=== PATIENT | male | born 1950 | race Caucasian/White ===

== ENCOUNTER 2017-05-09 11:26 | Outpatient (CLI) | payer BC ==
--- NOTE | 2017-05-09 12:10 | XRAY Preliminary Report ---
Exam: XR CHEST 2 VIEW X-RAY IMPRESSION: 1. No focal consolidation. 2. Subtle increased interstitial markings with bronchial cuffing are nonspecific but can be seen in t he setting of reactive airways disease, bronchitis or viral infection. ZAYA The call report notification system was initiated by Dr. Vianey Guidry at 12:05 hrs on 05/09/17. The above findings were discussed with Dr. Angelica Dr by Dr. Vianey Guidry at 12:08 hrs on 8. SITE ID: [id number]
--- NOTE | 2017-05-09 12:10 | XRAY Report ---
EXAM: CHEST RADIOGRAPHY EXAM DATE: 05/09/2017 11:50 AM. CLINICAL HISTORY: PNEUMONIA. COMPARISON: None. TECHNIQUE: 2 views. FINDINGS: Lungs/Pleura: Subtle increased interstitial markings with bronchial cuffing. No focal opacities evide nt. No pleural effusion. No pneumothorax. Normal volumes. Mediastinum: The heart is mildly enlarged. No pulmonary edema. Other: None. IMPRESSION: 1. No focal consolidation. 2. Subtle increased interstitial markings with bronchial cuffing are nonspecific but can be seen in t he setting of reactive airways disease, bronchitis or viral infection. RADIA The call report notification system was initiated by Dr. Vianey Guidry at 12:05 hrs on 05/09/17. The above findings were discussed with Dr. Angelica Dr by Dr. Vianey Guidry at 12:08 hrs on 8. Referring Provider Line: [phone] SITE ID: [id number]
== END 2017-05-09 11:27 | disposition home or self-care (01) ==
LOC: DI 11:26
PROVIDERS: ATTEND Specialist
DX: J18.9 Pneumonia, unspecified organism (principal)
CPT/HCPCS: 71046

== ENCOUNTER 2019-05-28 02:19 | Emergency (ER) | payer BC, MEDICARE ==
--- NOTE | 2019-05-28 02:35 | ED Physician Documentation ---
History of Present Illness - Stated complaint Stated Complaint: THIGH CRAMP - Additonal information Additional information: This is a 68-year-old male with a history of hypertension, intracranial hemorrhage with resultant hemiplegia, who presents with right-sided thigh pain/cramping. Patient states he has had cramping in his right anterior thigh on and off for a few years, but over the last several days has become more constant and more painful. Tonight it was keeping him up at night, so he presented to the ED for evaluation. He denies any leg swelling or redness, states that in fact his legs seem less swollen than usual to him. The pain is located over the anterior thigh and radiates To his flank. He denies any dysuria, no chest pain, no shortness of breath. He denies any new weakness or numbness. Positional changes seem to make it somewhat better, he prefers to stand up rather than sit down. He is on baclofen chronically, states that he increased his dose from 10 mg twice daily to 20 mg twice daily in the last day without significant improvement. He is also been taking Tylenol 650 mg every 4- 6 hours Review of Systems Constitutional: denies: Fever Nose: denies: Congestion Cardiac: denies: Chest pain / pressure Respiratory: denies: Dyspnea GI: denies: Abdominal Pain, Vomiting : denies: Dysuria Skin: denies: Rash Musculoskeletal: reports: Extremity pain Neurologic: reports: Other (Hx ICH) Immunocompromised: denies: Immunocompromised PD PAST MEDICAL HISTORY - Past Medical History Cardiovascular: None Endocrine/Autoimmune: None Psych: None Musculoskeletal: Hemiplegia - Past Surgical History Past Surgical History: No - Allergies Allergies/Adverse Reactions: Allergies Allergy/AdvReac Type Severity Reaction Status Date / Time No Known Drug Allergies Allergy Verified 08/31/13 07:55 - Social History Does the pt smoke?: No Smoking Status: Never smoker - Immunizations Immunizations are current?: No PD ED PE NORMAL - Vitals Vital signs reviewed: Yes - General General: Alert and oriented X 3, No acute distress - Neck Neck: Supple, no meningeal sign - Cardiac Cardiac: RRR - Respiratory Respiratory: No respiratory distress, Clear bilaterally - Abdomen Abdomen: Soft, Non tender, Non distended, Other (rotund) - Back Back: No spinal TTP, Other (Mild right paraspinous tenderness to palpation) - Derm Derm: Warm and dry - Extremities Extremities: No deformity, Other (Patient has mild anterior quadriceps tenderness, no masses, no redness. There is trace to 1+ symmetric bilateral lower extremity edema. Patient has reduced sensation over his feet, which she states is baseline for him since his stroke. Patient has 5 out of 5 strength with ankle dorsiflexion and plantarflexion on the right, he is able to flex and extend his knee, flexion of the hip causes him pain but he is able to lift his leg off the bed. He has palpable DP and PT pulses bilaterally, Feet are warm and appear well-perfused bilaterally) - Neuro Neuro: Alert and oriented X 3 - Psych Psych: Normal mood, Normal affect Results - Vitals Vitals: Vital Signs - 24 hr 05/28/19 05/28/19 05/28/19 02:33 02:42 03:39 Temperature 36.9 C Heart Rate 63 Respiratory 19 20 19 Rate Blood Pressure 155/138 H O2 Saturation 96 05/28/19 05/28/19 03:57 04:22 Temperature Heart Rate 63 Respiratory 17 17 Rate Blood Pressure O2 Saturation 96 Oxygen O2 Source Room air - Labs Labs: Laboratory Tests 05/28/19 05/28/19 03:30 03:30 WBC 6.8 RBC 5.17 Hgb 15.1 Hct 45.4 MCV 87.8 MCH 29.2 MCHC 33.3 RDW 13.2 Plt Count 212 MPV 9.8 Neut # (Auto) 4.8 Lymph # (Auto) 1.3 L [place] # (Auto) 0.5 Eos # (Auto) 0.2 Baso # (Auto) 0.0 Absolute Nucleated RBC 0.00 Nucleated RBC % 0.0 Sodium 137 Potassium 3.7 Chloride 102 Carbon Dioxide 27 Anion Gap 8.0 BUN 15 Creatinine 0.8 Estimated GFR (MDRD) 97 Glucose 145 H Calcium 9.2 Magnesium 2.1 Total Bilirubin 1.1 H AST 20 ALT 22 Alkaline Phosphatase 80 Total Protein 7.2 Albumin 4.5 Globulin 2.7 Albumin/Globulin Ratio 1.7 Lipase 71 H - Rads (name of study) CT abd/pelvis Radiology: Other (No stone, there are degenerative changes of the lumbar spine, and bilateral fat-containing inguinal hernias) PD MEDICAL DECISION MAKING - ED course Complexity details: considered differential (Nephrolithiasis, muscle cramp, fracture, aortic aneurysm, ischemic limb, electrolyte abnormality) ED course: On arrival patient is nontoxic, vital signs are unremarkable. Physical exam is unrevealing. DVT was considered however his pain is only on his upper thigh, not his calf or posterior leg, he has no unilateral swelling, no erythema, making this less likely. Given the radiation of his pain to his flank lumbar spine pathology or aortic aneurysm were considered, CT scan was performed and shows no acute abnormalities that would explain his pain. It did show some fat- containing inguinal hernias, however no signs of incarceration or complication. Labs are unremarkable with no leukocytosis, electrolytes without significant derangement. UTI was considered however patient has no urinary symptoms, no fever, and on repeat examination he is not complaining of flank pain so much as mid to proximal thigh discomfort. This improved greatly after a dose of morphine. He has palpable pulses, well-perfused extremity, and his pain is local ized to 1 muscle group, no signs of ischemic limb at this time. I reviewed the results with the patient, explained I do not see an emergent cause of his pain, but I did review return precautions with him, the importance of primary care follow-up, and safe dosing of his home medications in the meantime. Departure - Departure Disposition: Home, Self Care Clinical Impression: Leg pain, anterior Qualifiers: Laterality: right Qualified Code(s): M79.604 - Pain in right leg Condition: Good Follow-Up: Patrick Braun DO [Primary Care Provider] - (Call Thursday for follow up) Comments: You were seen today for leg pain. Your labs and your scan are reassuring. You do have some arthritis changes in your spine, and you also have hernias on both sides, though I do not think these are the cause of your pain today. If you are having worsening symptoms such as leg redness, swelling, fever, or worsening pain, return to the emergency department. Otherwise think is important to follow-up with your primary care provider. You may continue your baclofen and tylenol as we discussed.
[2019-05-28] MEDS: MORPHINE 10 MG/ML VIAL IVP STA (03:36)
[2019-05-28 03:44] LABS: BASOPHILS % (AUTO) 0.4 %; EOSINOPHILS # (AUTO) 0.2 10^3/uL (0.0-0.7); EOSINOPHILS % (AUTO) 2.4 %; HGB - HEMOGLOBIN 15.1 g/dL (14.0-18.0); LYMPHOCYTES # (AUTO) 1.3 10^3/uL (1.5-3.5); MEAN CORPUSCULAR HEMOGLOBIN 29.2 pg (27.0-31.0); MEAN CORPUSCULAR HGB CONC 33.3 g/dL (32.0-36.0); MEAN CORPUSCULAR VOLUME 87.8 fL (80.0-94.0); MEAN PLATELET VOLUME 9.8 fL (7.4-11.4); MONOCYTES # (AUTO) 0.5 10^3/uL (0.0-1.0); MONOCYTES % (AUTO) 7.6 %; NEUTROPHILS # (AUTO) 4.8 10^3/uL (1.5-6.6); NEUTROPHILS % (AUTO) 70.3 %; PLT - PLATELET COUNT 212 10^3/uL (130-450); RED BLOOD COUNT 5.17 10^6/uL (4.70-6.10); RED CELL DISTRIBUTION WIDTH 13.2 % (12.0-15.0); WHITE BLOOD COUNT 6.8 x10^3/uL (4.8-10.8)
[2019-05-28 03:58] LABS: ALBUMIN 4.5 g/dL (3.2-5.5); ALBUMIN/GLOBULIN RATIO 1.7 (1.0-2.2); BILIRUBIN,TOTAL 1.1 mg/dL (0.2-1.0); CALCIUM 9.2 mg/dL (8.5-10.3); CREATININE 0.8 mg/dL (0.6-1.2); MAGNESIUM 2.1 mg/dL (1.7-2.8); TOTAL PROTEIN 7.2 g/dL (6.7-8.2)
--- NOTE | 2019-05-28 04:00 | CT Report ---
Reason: R flank pain radiating to leg Procedure Date: 05/28/2019 Accession Number: [id number] / [id number] Procedure: CT - Abdomen/Pelvis WO CPT Code: Final Report FULL RESULT: EXAM: CT ABDOMEN AND PELVIS (CT KUB) EXAM DATE: 05/28/2019 03:52 AM. CLINICAL HISTORY: R flank pain radiating to leg. COMPARISONS: None. TECHNIQUE: Routine axial helical CT imaging was performed through the abdomen and pelvis without IV contrast. Reconstructions: Coronal and sagittal. In accordance with CT protocol optimization, one or more of the following dose reduction techniques were utilized for this exam: automated exposure control, adjustment of mA and/or KV based on patient size, or use of iterative reconstructive technique. FINDINGS: Lung Bases: Unremarkable. Right Kidney/Ureter: No stones, hydronephrosis, or hydroureter. No perinephric fat stranding. Left Kidney/Ureter: No stones, hydronephrosis, or hydroureter. No perinephric fat stranding. Other Solid Organs: Noncontrast images of the solid organs are grossly unremarkable. Gallbladder/Bile Ducts: Unremarkable. Peritoneal Cavity: No free fluid, free air or shirlene adenopathy. Bowel is grossly unremarkable. Normal appendix. Pelvic Organs: No bladder stones or wall thickening. Noncontrast images of the visualized pelvic organs are unremarkable. Vasculature: Unremarkable. Other: Degenerative changes in the lumbar spine and hips. Bilateral fat-containing inguinal hernias. IMPRESSION: No urinary tract stones or obstruction. RADIA
[2019-05-28] MEDS: ACETAMINOPHEN 325 MG TABLET PO STA (04:40)
[2019-05-28] MEDS: MORPHINE 2 MG/ML CARPUJECT IVP STA (04:40)
[2019-05-28 04:48] VITALS: BP 149/82
== END 2019-05-28 05:05 | disposition home or self-care (01) ==
LOC: ED 02:19
DX: M79.651 Pain in right thigh (principal)
CPT/HCPCS: 36415; 74176; 80053; 83690; 83735; 85025; 96374; 96376; 99284; 99285; A9270

== ENCOUNTER 2021-07-10 11:41 | Emergency (ER) | payer MEDICARE ==
--- NOTE | 2021-07-10 13:53 | ED Physician Documentation ---
History of Present Illness - Stated complaint Stated Complaint: COUGH/SOA - Chief complaint Chief Complaint: Resp - History obtained from History obtained from: Patient, Family - Additonal information Additional information: Patient comes emergency department chief complaint of A 5-day history of cough and rhinorrhea with occasional dyspnea. The patient became ill after his grandkids all had colds.. is concerned because she feels like the cough is getting worse. Patient also has been chronically having issues at night with being only partially awake and wandering around confused. He does not remember the episodes in the morning. states it's been worse since the patient's been sick. The patient feels that he is "fine". No other complaints at this time. Review of Systems Ten Systems: 10 systems reviewed and negative Constitutional: reports: Reviewed and negative Eyes: reports: Reviewed and negative Ears: reports: Reviewed and negative Nose: reports: Rhinorrhea / runny nose, Congestion Throat: reports: Reviewed and negative Cardiac: reports: Reviewed and negative Respiratory: reports: Dyspnea, Cough GI: reports: Reviewed and negative : reports: Reviewed and negative Skin: reports: Reviewed and negative Musculoskeletal: reports: Reviewed and negative Neurologic: reports: Reviewed and negative Psychiatric: reports: Reviewed and negative Endocrine: reports: Reviewed and negative Immunocompromised: reports: Reviewed and negative PD PAST MEDICAL HISTORY - Past Medical History Past Medical History: Yes Cardiovascular: Hypertension, High cholesterol Respiratory: None Neuro: None, Alzhiemer's, CVA Endocrine/Autoimmune: None GI: None : Kidney stones HEENT: None Psych: None Musculoskeletal: Hemiplegia Derm: None - Past Surgical History Past Surgical History: No - Present Medications Home Medications: Ambulatory Orders Medication Instructions Recorded Confirmed Amlodipine Besylate [Norvasc] 10 mg PO DAILY 07/10/21 07/10/21 Atorvastatin [Lipitor] 20 mg ORAL HS 07/10/21 07/10/21 Baclofen 20 mg PO TID PRN 07/10/21 07/10/21 Lisinopril [Zestril] 20 mg PO BID 07/10/21 07/10/21 Metoprolol Tartrate [Lopressor] 150 mg PO BID 07/10/21 07/10/21 - Allergies Allergies/Adverse Reactions: Allergies Allergy/AdvReac Type Severity Reaction Status Date / Time No Known Drug Allergies Allergy Verified 07/10/21 12:04 - Social History Does the pt smoke?: No Smoking Status: Never smoker Does the pt drink ETOH?: No Does the pt have substance abuse?: No - Immunizations Immunizations are current?: Yes - POLST Patient has POLST: No PD ED PE NORMAL - Vitals Vital signs reviewed: Yes - General General: Alert and oriented X 3, No acute distress, Well developed/nourished, Other (Well-appearing male no apparent distress.) - HEENT HEENT: Atraumatic, PERRL, EOMI, Moist mucous membranes - Neck Neck: Supple, no meningeal sign - Cardiac Cardiac: RRR, No murmur, Strong equal pulses - Respiratory Respiratory: No respiratory distress, Clear bilaterally - Abdomen Abdomen: Soft, Non tender, Non distended - Derm Derm: Normal color, Warm and dry, No rash - Extremities Extremities: No deformity, No edema, No calf tenderness / cord - Neuro Neuro: Alert and oriented X 3 - Psych Psych: Normal mood, Normal affect Results - Vitals Vitals: Vital Signs - 24 hr 07/10/21 07/10/21 07/10/21 11:58 12:44 13:45 Temperature 36.5 C Heart Rate 58 L 56 L 57 L Respiratory 14 18 18 Rate Blood Pressure 116/86 H 136/74 H 142/79 H O2 Saturation 98 96 97 07/10/21 15:20 Temperature Heart Rate 63 Respiratory 15 Rate Blood Pressure 165/83 H O2 Saturation 97 Oxygen O2 Source Room air - Labs Labs: Laboratory Tests 07/10/21 13:40 Nasal Adenovirus (PCR) NOT DETECTED Nasal B. parapertussis DNA (PCR) NOT DETECTED Nasal Coronavir 229E PCR NOT DETECTED Nasal Coronavir HKU1 PCR NOT DETECTED Nasal Coronavir NL63 PCR NOT DETECTED Nasal Coronavir OC43 PCR NOT DETECTED Nasal Enterovir/Rhinovir PCR NOT DETECTED Nasal Influenza B PCR NOT DETECTED Nasal Influenza A PCR NOT DETECTED Nasal Parainfluen 1 PCR NOT DETECTED Nasal Parainfluen 2 PCR NOT DETECTED Nasal Parainfluen 3 PCR NOT DETECTED Nasal Parainfluen 4 PCR NOT DETECTED Nasal RSV (PCR) NOT DETECTED Nasal B.pertussis DNA PCR NOT DETECTED Nasal C.pneumoniae (PCR) NOT DETECTED Kailash Human Metapneumo PCR NOT DETECTED Nasal M.pneumoniae (PCR) NOT DETECTED Nasal SARS-CoV-2 (PCR) NOT DETECTED - Rads (name of study) Chest x-ray Radiology: Final report received, EMP read indepedently, See rad report (Mild cardiomegaly with mild interstitial markings, correlate clinically) PD MEDICAL DECISION MAKING - ED course Complexity details: reviewed results, re-evaluated patient, considered differential, d/w patient ED course: Patient was very well-appearing and lungs were clear. He did not have any lower extremity edema, and although the x-ray was read as interstitial markings and cardiomegaly correlate clinically, I do not feel that these findings were likely to be the cause of the patient's more acute symptoms we have discussed symptomatic management at home and the need for follow-up. A respiratory panel has been sent and is pending at this time. We have discussed the usual indications for return. Departure - Departure Disposition: 01 Home, Self Care Clinical Impression: Upper respiratory tract infection Qualifiers: URI type: unspecified viral URI Qualified Code(s): J06.9 - Acute upper respiratory infection, unspecified Condition: Stable Instructions: ED Viral Syndrome Comments: Your x-ray looks good. A respiratory panel is pending at this time and should come back in the next few hours. We will call you if any results are positive. There is no indication for antibiotics at this time, based on your chest x-ray. If your respiratory panel comes back positive for atypical bacteria or any of the viruses we test for, we will call you at home in the evening. If the problems with confusion at night are becoming overwhelming, you may speak with your primary doctor about getting a home health assistant analyst to be in the home at night and assist when you need to get up to the bathroom or something else. Discharge Date/Time: 07/10/21 15:25
--- NOTE | 2021-07-10 14:24 | XRAY Report ---
PROCEDURE: Chest 2 View X-Ray INDICATIONS: cough TECHNIQUE: 2 view(s) of the chest. COMPARISON: None. FINDINGS: Surgical changes and devices: None. Lungs and pleura: No pleural effusions or pneumothorax. Mildly increased interstitial markings in ozzy th lungs. Mediastinum: Mediastinal contours are normal. Heart size is enlarged. Bones and chest wall: No suspicious bony abnormalities. Soft tissues appear unremarkable. IMPRESSION: Mild cardiomegaly with mildly increased interstitial markings in the lungs. Correlate fo r mild cardiogenic pulmonary edema. Reviewed by: Franklyn Carreon MD on 07/10/2021 2:23 PM PDT Approved by: Franklyn Carreon MD on 07/10/2021 2:23 PM PDT Station ID: [id number]
[2021-07-10 14:39] LABS: B. PARAPERTUSSIS- RESP PCR PAN NOT DETECTED; B. PERTUSSIS- RESP PCR PANEL NOT DETECTED; C. PNEUMONIAE- RESP PCR PANEL NOT DETECTED; CORONAVIRUS 229E-RESP PCR NOT DETECTED; CORONAVIRUS HKU1-RESP PCR NOT DETECTED; CORONAVIRUS NL63-RESP PCR NOT DETECTED; CORONAVIRUS OC43-RESP PCR NOT DETECTED; HUMAN METAPNEUMOVIRUS NOT DETECTED; INFLUENZA A- RESP PCR PANEL NOT DETECTED; INFLUENZA B - RESP PCR PANEL NOT DETECTED; M. PNEUMONIAE- RESP PCR PANEL NOT DETECTED; PARAINFLUENZA VIRUS 1 NOT DETECTED; PARAINFLUENZA VIRUS 2 NOT DETECTED; PARAINFLUENZA VIRUS 3 NOT DETECTED; PARAINFLUENZA VIRUS 4 NOT DETECTED; RHINOVIRUS/ENTEROVIRUS NOT DETECTED; RSV- RESP PCR PANEL NOT DETECTED; SARS-CoV-2 -RESP PCR PANEL NOT DETECTED
[2021-07-10 15:21] VITALS: BP 165/83
== END 2021-07-10 15:25 | disposition home or self-care (01) ==
LOC: ED 11:41
DX: J06.9 Acute upper respiratory infection, unspecified (principal); I10 Essential (primary) hypertension; Z20.822 Contact with and (suspected) exposure to COVID-19
CPT/HCPCS: 87633; 99282; 99284

== ENCOUNTER 2022-01-30 07:32 | Emergency (ER) | payer MEDICARE, OTHER ==
[2022-01-30 08:47] LABS: BASOPHILS % (AUTO) 0.6 %; EOSINOPHILS # (AUTO) 0.2 10^3/uL (0.0-0.7); EOSINOPHILS % (AUTO) 3.3 %; HCT - HEMATOCRIT 49.5 % (42.0-52.0); HGB - HEMOGLOBIN 15.9 g/dL (14.0-18.0); LYMPHOCYTES # (AUTO) 1.8 10^3/uL (1.5-3.5); MEAN CORPUSCULAR HEMOGLOBIN 28.1 pg (27.0-31.0); MEAN CORPUSCULAR HGB CONC 32.1 g/dL (32.0-36.0); MEAN CORPUSCULAR VOLUME 87.6 fL (80.0-94.0); MONOCYTES # (AUTO) 0.6 10^3/uL (0.0-1.0); MONOCYTES % (AUTO) 9.7 %; NEUTROPHILS # (AUTO) 3.9 10^3/uL (1.5-6.6); NEUTROPHILS % (AUTO) 58.9 %; PLT - PLATELET COUNT 238 10^3/uL (130-450); RED BLOOD COUNT 5.65 10^6/uL (4.70-6.10); RED CELL DISTRIBUTION WIDTH 13.2 % (12.0-15.0); WHITE BLOOD COUNT 6.6 x10^3/uL (4.8-10.8)
[2022-01-30 08:59] LABS: ALBUMIN 4.2 g/dL (3.2-5.5); ALBUMIN/GLOBULIN RATIO 1.2 (1.0-2.2); BILIRUBIN,TOTAL 1.1 mg/dL (0.2-1.0); CALCIUM 9.3 mg/dL (8.5-10.3); CREATININE 1.6 mg/dL (0.6-1.2); POTASSIUM 3.7 mmol/L (3.5-5.0); TOTAL PROTEIN 7.6 g/dL (6.7-8.2)
--- NOTE | 2022-01-30 08:59 | XRAY Report ---
PROCEDURE: Chest 1 View X-Ray INDICATIONS: weak TECHNIQUE: One view of the chest was acquired. Right costophrenic sulcus was not imaged. COMPARISON: 07/10/2021. FINDINGS: Surgical changes and devices: None Lungs and pleura: No pleural effusions or pneumothorax. Lungs are clear. Mediastinum: Stable, mild cardiomegaly. Stable aortic contour. No significant central venous congest ion. Bones and chest wall: No suspicious bony lesions. Overlying soft tissues appear unremarkable. IMPRESSION: 1. No acute cardiopulmonary disease. 2. Stable cardiomegaly without radiographic evidence of acute CHF. Reviewed by: Yvonne Isidro MD on 01/30/2022 8:57 AM PST Approved by: Yvonne Isidro MD on 01/30/2022 8:57 AM PST Station ID: [id number]
[2022-01-30] MEDS ORDERED: MORPHINE 2 MG/ML CARPUJECT IVP STA ×2 (09:00→12:21)
[2022-01-30] MEDS ORDERED: ONDANSETRON 4 MG/2 ML VIAL IVP STA (09:00)
[2022-01-30 09:23] LABS: B. PARAPERTUSSIS- RESP PCR PAN NOT DETECTED; B. PERTUSSIS- RESP PCR PANEL NOT DETECTED; C. PNEUMONIAE- RESP PCR PANEL NOT DETECTED; CORONAVIRUS 229E-RESP PCR NOT DETECTED; CORONAVIRUS HKU1-RESP PCR NOT DETECTED; CORONAVIRUS NL63-RESP PCR NOT DETECTED; CORONAVIRUS OC43-RESP PCR NOT DETECTED; HUMAN METAPNEUMOVIRUS NOT DETECTED; INFLUENZA A- RESP PCR PANEL NOT DETECTED; INFLUENZA B - RESP PCR PANEL NOT DETECTED; M. PNEUMONIAE- RESP PCR PANEL NOT DETECTED; PARAINFLUENZA VIRUS 1 NOT DETECTED; PARAINFLUENZA VIRUS 2 NOT DETECTED; PARAINFLUENZA VIRUS 3 NOT DETECTED; PARAINFLUENZA VIRUS 4 NOT DETECTED; RHINOVIRUS/ENTEROVIRUS NOT DETECTED; RSV- RESP PCR PANEL NOT DETECTED; SARS-CoV-2 -RESP PCR PANEL NOT DETECTED
[2022-01-30] MEDS ORDERED: iohexoL-300 100 ML VIAL ONE (09:34)
[2022-01-30] MEDS ORDERED: iohexoL-300 100 ML VIAL IVP ONE (10:21)
--- NOTE | 2022-01-30 10:34 | CT Report ---
PROCEDURE: HEAD WO INDICATIONS: dry heaving/history of ICH TECHNIQUE: Noncontrast 4.5 mm thick angled axial sections acquired from the foramen magnum to the vertex. For r adiation dose reduction, the following was used: automated exposure control, adjustment of mA and/or kV according to patient size. COMPARISON: MR brain 07/30/2015, head CT 12/09/2013. FINDINGS: Image quality: Excellent. CSF spaces: Basal cisterns are patent. No extra-axial fluid collections. Ventricles are similar in appearance to before. Brain: Prominence of the ventricles and sulci suggestive of cerebral volume loss. Ill-defined perive ntricular and deep white matter hypodensities, nonspecific, likely sequela of microvascular ischemic change. No midline shift. No intracranial masses or hemorrhage. Ferrera-white matter interface is unre markable without definite evidence of acute infarct in a major vascular territory. Skull and face: Calvarium and visualized facial bones are intact, without suspicious lesions. Sinuses: Visualized sinuses and mastoids are clear. IMPRESSION: No intracranial hemorrhage or other acute intracranial abnormality. Reviewed by: Mateus Aldana MD on 01/30/2022 10:32 AM [facility] Approved by: Mateus Aldana MD on 01/30/2022 10:32 AM [facility] Station ID: [id number]
--- NOTE | 2022-01-30 10:50 | CT Report ---
PROCEDURE: ABDOMEN/PELVIS W INDICATIONS: R sided pain CONTRAST: 100ml Omnipaque 300 TECHNIQUE: After the administration of IV contrast, 5 mm thick sections acquired from the diaphragms to the symp hysis. 5 mm thick coronal and sagittal reformats were acquired. For radiation dose reduction, the f ollowing was used: automated exposure control, adjustment of mA and/or kV according to patient size. COMPARISON: None. FINDINGS: Image quality: Excellent. ABDOMEN: Lung bases: Lung bases are clear. Heart size is normal. Solid organs: Liver and spleen are normal in size and enhancement. Gallbladder is distended. No vis ible calcifications Biliary system is non dilated. Pancreas enhances normally. No adrenal nodules. Kidneys demonstrate normal size and enhancement, without hydronephrosis. Small left renal cyst. Peritoneum and bowel: Mild mucosal hyperemia throughout the stomach and proximal duodenum. There is n o suspicious wall thickening or extraluminal gas. There may be subtle inflammatory changes in the per iduodenal fat. Elsewhere, bowel loops are relatively decompressed without evidence of obstruction or inflammation. No free fluid. Normal appendix. Nodes and vessels: No retroperitoneal or mesenteric adenopathy by size criteria. Aorta and inferior vena cava are normal in size. Miscellaneous: No ventral hernias. PELVIS: Genitourinary: Bladder wall thickness is normal. Miscellaneous: Small fat-containing left inguinal hernia. No pelvic adenopathy. Bones: No suspicious bony lesions. No vertebral body compression fractures. IMPRESSION: 1. Gastric and proximal duodenal mucosal hyperemia with questionable periduodenal inflammation sugges ting gastritis/duodenitis. No extraluminal gas to suggest perforated ulcer. 2. Distended gallbladder without visible calcification. Reviewed by: Yvonne Isidro MD on 01/30/2022 10:48 AM PST Approved by: Yvonne Isidro MD on 01/30/2022 10:48 AM PST Station ID: [id number]
--- NOTE | 2022-01-30 11:59 | ED Physician Documentation ---
History of Present Illness - Stated complaint Stated Complaint: LOWER BACK PX - Chief complaint Chief Complaint: General - History obtained from History obtained from: Patient - Additonal information Additional information: Patient is a 71-year-old male with a history of a hemorrhagic stroke with residual right-sided weakness presenting for evaluation of right lower back pain that he reports is a chronic condition for him but has been worse since Thursday. He describes it as a muscle ache. He has associated nausea and dry heaving.The pain does not radiate elsewhere. He denies diarrhea or constipation. He denies chest pain or difficulty breathing. He uses Tylenol at home regularly for the pain which usually does not help him anyways. He denies any recent falls. Review of Systems Constitutional: denies: Fever Cardiac: denies: Chest pain / pressure Respiratory: denies: Dyspnea GI: reports: Nausea. denies: Abdominal Pain : denies: Dysuria Musculoskeletal: reports: Back pain Neurologic: denies: Headache PD PAST MEDICAL HISTORY - Past Medical History Cardiovascular: None Respiratory: None Neuro: None Endocrine/Autoimmune: None GI: None : Kidney stones HEENT: None Psych: None Musculoskeletal: Hemiplegia Derm: None - Past Surgical History Past Surgical History: No - Present Medications Home Medications: Ambulatory Orders Medication Instructions Recorded Confirmed Amlodipine Besylate [Norvasc] 10 mg PO DAILY 07/10/21 07/10/21 Atorvastatin [Lipitor] 20 mg ORAL HS 07/10/21 07/10/21 Baclofen 20 mg PO TID PRN 07/10/21 07/10/21 Lisinopril [Zestril] 20 mg PO BID 07/10/21 07/10/21 Metoprolol Tartrate [Lopressor] 150 mg PO BID 07/10/21 07/10/21 Lidocaine Patch 5% [Lidoderm Patch] 1 patch TOP DAILY PRN #10 patch 01/30/22 Ondansetron Odt [Zofran] 4 mg TL Q6H PRN #10 tablet 01/30/22 Oxycodone HCl/Acetaminophen 1 each PO Q6H PRN #14 tablet 01/30/22 [Percocet 5-325 mg Tablet] - Allergies Allergies/Adverse Reactions: Allergies Allergy/AdvReac Type Severity Reaction Status Date / Time No Known Drug Allergies Allergy Verified 01/30/22 07:50 - Social History Does the pt smoke?: No Smoking Status: Never smoker Does the pt drink ETOH?: No Does the pt have substance abuse?: No - Immunizations Immunizations are current?: No - POLST Patient has POLST: No PD ED PE NORMAL - General General: Alert and oriented X 3, No acute distress, Well developed/nourished - HEENT HEENT: Atraumatic - Neck Neck: Supple, no meningeal sign - Cardiac Cardiac: RRR, No murmur - Respiratory Respiratory: No respiratory distress, Clear bilaterally - Abdomen Abdomen: Soft, Other (Protuberant, mild upper abdominal tenderness to palpation) - Back Back: Other (Right low lumbar tenderness to palpation, no midline spinal tenderness) - Derm Derm: Warm and dry - Extremities Extremities: No calf tenderness / cord, Other (Pulses present in all 4 extremities) - Neuro Neuro: Alert and oriented X 3, Normal speech. No: No motor deficit (Right-sided weakness from prior stroke) Results - Vitals Vitals: Vital Signs - 24 hr 01/30/22 01/30/22 07:43 14:31 Temperature 35.9 C L Heart Rate 57 L 59 L Respiratory 16 13 Rate Blood Pressure 162/74 H 139/74 H O2 Saturation 99 96 Oxygen O2 Source Room air - Labs Labs: Laboratory Tests 01/30/22 01/30/22 01/30/22 08:18 08:42 08:42 WBC 6.6 RBC 5.65 Hgb 15.9 Hct 49.5 MCV 87.6 MCH 28.1 MCHC 32.1 RDW 13.2 Plt Count 238 MPV 10.0 Neut # (Auto) 3.9 Lymph # (Auto) 1.8 [place] # (Auto) 0.6 Eos # (Auto) 0.2 Baso # (Auto) 0.0 Absolute Nucleated RBC 0.00 Nucleated RBC % 0.0 Sodium 136 Potassium 3.7 Chloride 102 Carbon Dioxide 25 Anion Gap 9.0 BUN 56 H Creatinine 1.6 H Estimated GFR (MDRD) 43 L Glucose 136 H Calcium 9.3 Total Bilirubin 1.1 H AST 13 ALT 16 Alkaline Phosphatase 71 Total Protein 7.6 Albumin 4.2 Globulin 3.4 Albumin/Globulin Ratio 1.2 Lipase Urine Color Urine Clarity Urine pH Ur Specific [place] Urine Protein Urine Glucose (UA) Urine Ketones Urine Occult Blood Urine Nitrite Urine Bilirubin Urine Urobilinogen Ur Leukocyte Esterase Ur Microscopic Review Urine Culture Comments Nasal Adenovirus (PCR) NOT DETECTED Nasal B. parapertussis DNA (PCR) NOT DETECTED Nasal Coronavir 229E PCR NOT DETECTED Nasal Coronavir HKU1 PCR NOT DETECTED Nasal Coronavir NL63 PCR NOT DETECTED Nasal Coronavir OC43 PCR NOT DETECTED Nasal Enterovir/Rhinovir PCR NOT DETECTED Nasal Influenza B PCR NOT DETECTED Nasal Influenza A PCR NOT DETECTED Nasal Parainfluen 1 PCR NOT DETECTED Nasal Parainfluen 2 PCR NOT DETECTED Nasal Parainfluen 3 PCR NOT DETECTED Nasal Parainfluen 4 PCR NOT DETECTED Nasal RSV (PCR) NOT DETECTED Nasal B.pertussis DNA PCR NOT DETECTED Nasal C.pneumoniae (PCR) NOT DETECTED Kailash Human Metapneumo PCR NOT DETECTED Nasal M.pneumoniae (PCR) NOT DETECTED Nasal SARS-CoV-2 (PCR) NOT DETECTED 01/30/22 01/30/22 08:42 12:15 WBC RBC Hgb Hct MCV MCH MCHC RDW Plt Count MPV Neut # (Auto) Lymph # (Auto) [place] # (Auto) Eos # (Auto) Baso # (Auto) Absolute Nucleated RBC Nucleated RBC % Sodium Potassium Chloride Carbon Dioxide Anion Gap BUN Creatinine Estimated GFR (MDRD) Glucose Calcium Total Bilirubin AST ALT Alkaline Phosphatase Total Protein Albumin Globulin Albumin/Globulin Ratio Lipase 58 H Urine Color YELLOW Urine Clarity CLEAR Urine pH 6.0 Ur Specific [place] <=1.005 Urine Protein NEGATIVE Urine Glucose (UA) NEGATIVE Urine Ketones NEGATIVE Urine Occult Blood NEGATIVE Urine Nitrite NEGATIVE Urine Bilirubin NEGATIVE Urine Urobilinogen 0.2 (NORMAL) Ur Leukocyte Esterase NEGATIVE Ur Microscopic Review NOT INDICATED Urine Culture Comments NOT INDICATED Nasal Adenovirus (PCR) Nasal B. parapertussis DNA (PCR) Nasal Coronavir 229E PCR Nasal Coronavir HKU1 PCR Nasal Coronavir NL63 PCR Nasal Coronavir OC43 PCR Nasal Enterovir/Rhinovir PCR Nasal Influenza B PCR Nasal Influenza A PCR Nasal Parainfluen 1 PCR Nasal Parainfluen 2 PCR Nasal Parainfluen 3 PCR Nasal Parainfluen 4 PCR Nasal RSV (PCR) Nasal B.pertussis DNA PCR Nasal C.pneumoniae (PCR) Kailash Human Metapneumo PCR Nasal M.pneumoniae (PCR) Nasal SARS-CoV-2 (PCR) PD Medical Decision Making - ED course Complexity details: reviewed results, re-evaluated patient, d/w patient, d/w family ED course: Patient presenting for evaluation of right lower back pain that is been present for 8 years since he had his stroke but has been recently worsening. He states he has never addressed this with the doctor before. The pain does not radiate. Nothing makes it better or worse. He also has dry heaves.No chest pain or shortness of breath, no fever cough or congestion. Labs were reviewed. Normal CBC. Mild LYNDSAY with creatinine of 1.6 from a baseline of 0.8. Patient was given IV fluids for this. He was also given antiemetics for his nausea and pain medication.His urine did not show infection.His respiratory swab is negative. His chest x-ray is clear. A CT scan of his abdomen and pelvis was obtained which demonstrates a distended gallbladder. Patient Has a protuberant abdomen so exam is somewhat limited but does not appear to have peritoneal signs. He does have mild tenderness on deep palpation of the right upper quadrant but he states this is more from the pushing hard than true pain. An ultrasound was obtained which also demonstrates a distended gallbladder but no signs of cholecystitis or cholelithiasis.At this time I do not think he has emergent gallbladder pathology he is feeling better. Discussed need for close follow-up with his PCP as well as concerning symptoms to return for. Departure - Departure Disposition: Home, Self Care Clinical Impression: Lower back pain, Dry heaves Condition: Stable Instructions: ED Flank Pain Uncertain Cause Follow-Up: Patrick Braun DO [Provider Admit Priv/Credential] - Prescriptions: Lidocaine Patch 5% [Lidoderm Patch] 1 patch TOP DAILY PRN #10 patch PRN Reason: pain Oxycodone HCl/Acetaminophen [Percocet 5-325 mg Tablet] 1 each PO Q6H PRN #14 tablet PRN Reason: pain Ondansetron Odt [Zofran] 4 mg TL Q6H PRN #10 tablet PRN Reason: Nausea / Vomiting Comments: The exact cause of your back pain appears unclear. You were dehydrated based on your kidney labs but the IV fluid should help with that. The CT scan and ultrasound show a distended gallbladder but no signs of an infection to your gallbladder which would require it to come out emergently. There are also no signs of gallstones.I will send medication for pain, nausea and lidocaine patches to [facility] in [place]. I would recommend continuing to make sure you stay hydrated and have close follow-up with your primary care doctor. If you have any new or worsening symptoms please consider return to the ER. I am prescribing a short course of narcotic pain medication for you. These are potentially dangerous and addictive medications that should be used carefully. These medications may constipate you. Take an [id number] stool softener (docusate) twice daily with plenty of water while taking these medications. If you go 24 hours without a bowel movement, take [id number] miralax, per package instructions. Do not drink or drive while taking these medications. If you received narcotic or sedating medications while in the emergency department, do not drive for 24 hours. Store this medication in a safe, secure place and out of reach of children. It is a violation of federal law to give or sell this medication to another person or to use in a manner other than prescribed. The ED will not refill narcotic prescriptions, including prescriptions lost or stolen. To dispose of unwanted medications: 1. [facility] at [address] in [place] has a medication drop box. They accept prescription medications (in pill form) Thursday through Thursday 9:00 a.m. to 5:00 p.m. 2. The [facility] [employer] accepts prescription medications (in pill form only) for disposal year round. Call for more information. 3. Contact the [facility] for the next [facility] sponsored prescription drug collection event. , [phone], or [phone]; Note that many narcotic pain relievers also contain Tylenol/acetaminophen. Please ensure that your total dose of acetaminophen from all sources does not exceed 3 g (3000 mg) per day. Discharge Date/Time: 01/30/22 14:40
[2022-01-30] MEDS ORDERED: LIDOCAINE PATCH 5% TOP STA (12:21)
[2022-01-30 12:25] LABS: BILIRUBIN,URINE NEGATIVE (NEGATIVE); GLUCOSE, URINE (UA) NEGATIVE (NEGATIVE); KETONES,URINE (UA) NEGATIVE (NEGATIVE); LEUKOCYTE ESTERASE, URINE NEGATIVE (NEGATIVE); NITRITE,URINE NEGATIVE (NEGATIVE); OCCULT BLOOD,URINE NEGATIVE (NEGATIVE); PROTEIN,URINE NEGATIVE (NEGATIVE); UROBILINOGEN,URINE 0.2 (NORMAL) E.U./dL (NORMAL)
[2022-01-30 12:27] LABS: CLARITY,URINE CLEAR (CLEAR)
--- NOTE | 2022-01-30 13:35 | Ultrasound Report ---
PROCEDURE: Abdomen Limited INDICATIONS: RUQ TECHNIQUE: Real-time focused scanning was performed of the abdomen, with image documentation. COMPARISON: CT performed the same day. FINDINGS: The gallbladder is distended. The wall is of normal thickness at 2.1 mm. There are no ston es or sludge. No pericholecystic fluid or sonographic Ramos sign. There is trace relative hypodensit y in the liver in the gallbladder fossa consistent with fatty sparing. The other visible portions of the liver are mildly diffusely hyperechoic. There is no free fluid in the right upper quadrant. The visible portion, proximal pancreas is within normal limits. The visible portion of the right kidney is normal without hydronephrosis. IMPRESSION: 1. Distended gallbladder without signs of acute cholecystitis or cholelithiasis. 2. Preliminary results given by the plate fitter to the ordering provider immediately following the st udy. Reviewed by: Yvonne Isidro MD on 01/30/2022 1:33 PM PST Approved by: Yvonne Isidro MD on 01/30/2022 1:33 PM PST Station ID: [id number]
[2022-01-30 14:32] VITALS: BP 139/74
== END 2022-01-30 14:40 | disposition home or self-care (01) ==
LOC: ED 07:32
DX: M54.50 Low back pain, unspecified (principal); G89.29 Other chronic pain; R11.2 Nausea with vomiting, unspecified; N17.9 Acute kidney failure, unspecified; K82.8 Other specified diseases of gallbladder; I69.351 Hemiplegia and hemiparesis following cerebral infarction affecting right dominant side; Z20.822 Contact with and (suspected) exposure to COVID-19
CPT/HCPCS: 36415; 51798; 70450; 71045; 74177; 76705; 80053; 81003; 83690; 85025; 87633; 96374; 96375; 99283; 99284; Q9967; 81001; 87086

== ENCOUNTER 2022-03-07 11:27 | Outpatient (CLI) | payer MEDICARE ==
--- NOTE | 2022-03-07 16:33 | XRAY Report ---
PROCEDURE: Lumbar Spine Complete INDICATIONS: CHRONIC BACK PAIN TECHNIQUE: 5 views of the lumbar spine were acquired. COMPARISON: CT abdomen pelvis 01/30/2022 FINDINGS: Bones: 5 [id number] vertebrae are present. Minimal left convexity curvature centered at L3. No definite pars defects identified on oblique images. Suspect mild multilevel bony foraminal narrowing bilaterally. Mild multilevel degenerative changes with disc height loss, endplate spurring, and facet arthropathy. No vertebral body compression fractures. No suspicious bony lesions. Soft tissues: Overlying bowel gas pattern is normal. No suspicious soft tissue calcifications. IMPRESSION: Multilevel degenerative changes of the lumbar spine. Reviewed by: Mateus Aldana MD on 03/07/2022 4:31 PM PST Approved by: Mateus Aldana MD on 03/07/2022 4:31 PM [facility] Station ID: [id number]
== END 2022-03-07 11:28 | disposition home or self-care (01) ==
LOC: DI 11:27
PROVIDERS: ATTEND Family Medicine
DX: M51.36 Other intervertebral disc degeneration, lumbar region (principal); M47.816 Spondylosis without myelopathy or radiculopathy, lumbar region